=== PATIENT | male | born 1990 | race Two or more races ===

== ENCOUNTER 2020-08-07 09:52 | Outpatient (REF) | payer OTHER, SELFPAY ==
--- NOTE | ~2020-08-07 | XR_ITS ---
EXAMINATION: RIGHT ANKLE SERIES RIGHT FOOT SERIES CLINICAL INFORMATION: Pain in right ankle and right foot COMPARISON: None TECHNIQUE: 2 views of the right ankle and 3 views of the right foot including lateral view of the foot and ankle FINDINGS: Right ankle: There is a minimally displaced transverse slightly oblique fracture of the medial malleolus. Borderline slight widening of the medial clear space. The mortise is otherwise intact. There is generalized soft tissue swelling circumferentially about the ankle. Right foot: No additional fractures. No arthrosis. Unremarkable XR/XR ankle RT min 3V IMPRESSION: X-rays of the right ankle and right foot reveal a minimally displaced fracture of the medial malleolus with soft tissue swelling throughout the ankle region
--- NOTE | ~2020-08-07 | XR_ITS ---
EXAMINATION: RIGHT ANKLE SERIES RIGHT FOOT SERIES CLINICAL INFORMATION: Pain in right ankle and right foot COMPARISON: None TECHNIQUE: 2 views of the right ankle and 3 views of the right foot including lateral view of the foot and ankle FINDINGS: Right ankle: There is a minimally displaced transverse slightly oblique fracture of the medial malleolus. Borderline slight widening of the medial clear space. The mortise is otherwise intact. There is generalized soft tissue swelling circumferentially about the ankle. Right foot: No additional fractures. No arthrosis. Unremarkable XR/XR foot RT min 3V IMPRESSION: X-rays of the right ankle and right foot reveal a minimally displaced fracture of the medial malleolus with soft tissue swelling throughout the ankle region
== END 2020-08-07 09:53 | disposition home or self-care (01) ==
LOC: HO.HMGCX 09:52
PROVIDERS: Visit Provider Hospitalist
DX: M25.571 Pain in right ankle and joints of right foot (principal)
CPT/HCPCS: 73610; 73630

== ENCOUNTER 2020-08-24 07:45 | Outpatient (REF) | payer OTHER, SELFPAY | END 2020-08-24 07:46 | disposition home or self-care (01) | LOC: HO.HOSX 07:45 | PROVIDERS: Visit Provider Physician Assistant | DX: Z13.89 Encounter for screening for other disorder (principal) ==

== ENCOUNTER 2022-05-17 09:27 | Outpatient (REF) | payer OTHER, SELFPAY | END 2022-05-17 09:28 | disposition home or self-care (01) | LOC: HO.LAB 09:27 | PROVIDERS: Visit Provider Nurse Practitioner Family | DX: R34 Anuria and oliguria (principal); R39.89 Other symptoms and signs involving the genitourinary system | CPT/HCPCS: 87086 ==